=== PATIENT | female | born 1945 | race Caucasian/White ===

== ENCOUNTER → 2017-10-19 | Outpatient (CLI) | payer MEDICARE, OTHER ==
[~2017-10-19] MED LIST: ADVIL100 MG PO; AMLO10 PO; AMLO5 PO; ANTOXYBENA LEFTEAR; ASPI81CH PO; ATOR40TA PO; Amoxicillin500 MG PO; Amoxicillin875 MG PO; Azor 10-40 MG1 EACH PO; Azor 5-40 MG T1 EACH PO; BUPR150ER PO; CLON.2 PO; CLOP75 PO; CYCL10 PO; Calcium Carbon500 M1 PO; Catapres0.2 MG PO; Cipro250 MG PO; Cipro500 MG PO; Col-Rite100 MG PO; Cymbalta60 MG PO; DOCU100; DOCU100 PO; DULO60 PO; ESTR2 PO; FURO20 PO; Flagyl500 MG PO; HUMALOG KW200 UNIT/1 SC; HYDCHL25 PO; HYDHCL25 PO; HYDMOR2 PO; HYDR10 PO; HYDRA25 PO; Humalog Mi100 UNIT/4 SC; IBUP800 PO; INSDET100 SC; INSLIS75I SC; INSUASPI SC; INSULANPEN; INSULANPEN SC; LEVFLO500 PO; LOSA50 PO; MECL12.5 PO; METF500 PO; MIRALAX17 GM PO; Melatonin1 MG; Milk Of Ma800 MG/5 M PO; Norco 5-325 Ta1 EACH PO; OMEP20ER PO; OXYACE5T PO; PANT40 PO; Pepcid20 MG PO; Plavix75 MG PO; Prednisone10 MG PO; SIMV40 PO; TRAM50 PO; TRIA15CR3 TOP; TRIA80TC TOP; Ultram50 MG PO; Vistaril25 MG PO; XARELTO15 MG PO; Zofran Odt4 MG SL
[2017-10-19 12:47] LABS: BASOPHILS ABSOLUTE AUTO 0.06 K/mm3 (0.00-0.23); BASOPHILS PERCENT AUTO 1 % (0-2); EOSINOPHILS PERCENT AUTO 5 % (0-6); Hematocrit 38.1 % (33.0-51.0); Hemoglobin 12.8 g/dL (11.5-16.0); IMMATURE GRAN ABSOLUTE AUTO 0.02 K/mm3 (0.00-0.10); IMMATURE GRAN PERCENT AUTO 0 % (0-1); LYMPHOCYTES ABSOLUTE AUTO 1.59 K/mm3 (0.84-5.20); LYMPHOCYTES PERCENT AUTO 17 % (21-46); MONOCYTES ABSOLUTE AUTO 0.67 K/mm3 (0.16-1.47); MONOCYTES PERCENT AUTO 7 % (4-13); Mean Corpuscular HGB 28.8 pg (26.0-34.0); Mean Corpuscular HGB Conc 33.6 g/dL (31.5-36.5); Mean Corpuscular Volume 86 fL (80-100); Mean Platelet Volume 9.4 fL (9.1-12.4); NEUTROPHILS ABSOLUTE AUTO 6.44 K/mm3 (1.96-9.15); NEUTROPHILS PERCENT AUTO 70 % (41-73); Platelet Count 317 K/mm3 (150-400); RDW Coefficient Variation 13.2 % (11.7-14.2); Red Blood Cell Count 4.45 M/mm3 (3.80-5.20); White Blood Cell Count 9.28 K/mm3 (4.00-11.30)
[2017-10-19 14:23] LABS: Alanine Aminotransfer (ALT/SGP 18 U/L (12-78); Albumin, Blood 2.9 g/dL (3.4-5.0); Albumin/Globulin Ratio 0.8 (0.8-1.8); Alk Phos 75 U/L (50-136); Anion Gap 6 mmol/L (6-16); Aspartate Aminotrans (AST/SGOT 15 U/L (12-37); Bilirubin, Total 0.4 mg/dL (0.1-1.0); Blood Urea Nitrogen 31 mg/dL (8-24); CHOL/HDL RATIO 5.4; CO2, Blood 30 mmol/L (21-32); Calcium, Blood 8.8 mg/dL (8.5-10.1); Chloride, Blood 100 mmol/L (98-108); Cholesterol 253 mg/dL (50-200); Free Thyroxine 1.21 ng/dL (0.70-1.60); Globulin, Blood 3.6 g/dL (2.2-4.0); Glucose, Blood 273 mg/dL (70-99); HDL Cholesterol 47 mg/dL (>39); LDL/HDL RATIO 3.5; Low Density Lipoprotein Chol 166 mg/dL (0-110); Potassium, Blood 4.3 mmol/L (3.5-5.5); Sodium, Blood 136 mmol/L (136-145); Total Protein, Blood 6.5 g/dL (6.4-8.2); Triglycerides 200 mg/dL (30-160); Very Low Density Lipoprot Chol 40 mg/dL (6-32)
[2017-10-19 15:04] LABS: Bun/Creatinine Ratio 22.8 (12.0-20.0); Creatinine, Blood 1.36 mg/dL (0.40-1.00); Glomerular Filtration Rate 41 (60-)
== END | disposition home or self-care (01) ==
LOC: LAB 12:30
PROVIDERS: Family Medicine
DX: E78.5 Hyperlipidemia, unspecified (principal); E03.9 Hypothyroidism, unspecified; I50.9 Heart failure, unspecified
CPT/HCPCS: 80053; 80061; 84439; 84443; 85025

== ENCOUNTER 2017-11-23 18:13 | Emergency (ER) | payer MEDICARE, OTHER ==
[~2017-11-23] VITALS: Ht 162.6 cm; Wt 90.7 kg
[~2017-11-23 18:13] MED LIST changes: -ADVIL100 MG PO; -Calcium Carbon500 M1 PO; -Cipro250 MG PO; -DOCU100 PO; -HUMALOG KW200 UNIT/1 SC; -MECL12.5 PO; -MIRALAX17 GM PO; -PANT40 PO; -Pepcid20 MG PO; -TRIA15CR3 TOP; -XARELTO15 MG PO
[2017-11-23] MEDS ORDERED: Pepcid20 MG PO (19:00)
[2017-11-23] MEDS ORDERED: HYDHCL25 PO (19:00)
[2018-09-12] MEDS ORDERED: Cipro250 MG PO (19:04)
== END 2017-11-23 19:14 | disposition home or self-care (01) ==
LOC: ER 18:13
DX: L50.9 Urticaria, unspecified (principal); Z88.0 Allergy status to penicillin; Z88.2 Allergy status to sulfonamides; Z88.1 Allergy status to other antibiotic agents; Z88.5 Allergy status to narcotic agent; Z79.899 Other long term (current) drug therapy; Z79.4 Long term (current) use of insulin; I10 Essential (primary) hypertension; F32.9 Major depressive disorder, single episode, unspecified; E11.43 Type 2 diabetes mellitus with diabetic autonomic (poly)neuropathy; K31.84 Gastroparesis; Z86.73 Personal history of transient ischemic attack (TIA), and cerebral infarction without residual deficits
CPT/HCPCS: 96372; 99283; J1100

== ENCOUNTER 2018-01-28 12:29 | Emergency (ER) | payer MEDICARE, OTHER ==
[~2018-01-28] VITALS: Ht 160 cm; Wt 93.0 kg
[~2018-01-28 12:29] MED LIST changes: +Pepcid20 MG PO
[2018-01-28] MEDS ORDERED: TRIA15CR3 TOP (13:33)
== END 2018-01-28 13:38 | disposition home or self-care (01) ==
LOC: ER 12:29
DX: L25.9 Unspecified contact dermatitis, unspecified cause (principal); Z88.0 Allergy status to penicillin; Z88.2 Allergy status to sulfonamides; Z88.1 Allergy status to other antibiotic agents; Z88.5 Allergy status to narcotic agent; Z79.899 Other long term (current) drug therapy; Z79.4 Long term (current) use of insulin; I10 Essential (primary) hypertension; F32.9 Major depressive disorder, single episode, unspecified; E11.9 Type 2 diabetes mellitus without complications; Z86.73 Personal history of transient ischemic attack (TIA), and cerebral infarction without residual deficits
CPT/HCPCS: 99282

== ENCOUNTER 2018-05-20 22:11 | Observation (INO) | payer MEDICARE, OTHER ==
[~2018-05-20] VITALS: Ht 160 cm; Wt 89.0 kg
[~2018-05-20 22:11] MED LIST changes: +TRIA15CR3 TOP
[2018-05-20 22:41] LABS: BASOPHILS PERCENT AUTO 1 % (0-2); EOSINOPHILS ABSOLUTE AUTO 0.86 K/mm3 (0.00-0.68); EOSINOPHILS PERCENT AUTO 11 % (0-6); Hematocrit 35.4 % (33.0-51.0); Hemoglobin 12.1 g/dL (11.5-16.0); IMMATURE GRAN ABSOLUTE AUTO 0.02 K/mm3 (0.00-0.10); IMMATURE GRAN PERCENT AUTO 0 % (0-1); LYMPHOCYTES ABSOLUTE AUTO 1.81 K/mm3 (0.84-5.20); LYMPHOCYTES PERCENT AUTO 22 % (21-46); MONOCYTES ABSOLUTE AUTO 0.71 K/mm3 (0.16-1.47); MONOCYTES PERCENT AUTO 9 % (4-13); Mean Corpuscular HGB Conc 34.2 g/dL (31.5-36.5); Mean Corpuscular Volume 85 fL (80-100); Mean Platelet Volume 9.1 fL (9.1-12.4); NEUTROPHILS ABSOLUTE AUTO 4.64 K/mm3 (1.96-9.15); NEUTROPHILS PERCENT AUTO 57 % (41-73); Platelet Count 265 K/mm3 (150-400); RDW Coefficient Variation 13.5 % (11.7-14.2); RDW Standard Deviation 42.2 fL (35.1-46.3); Red Blood Cell Count 4.17 M/mm3 (3.80-5.20); White Blood Cell Count 8.14 K/mm3 (4.00-11.30)
[2018-05-20 22:54] LABS: International Normalized Ratio 0.93; Prothrombin Time Results 9.6 Sec (9.7-11.5)
[2018-05-20 22:57] LABS: Alanine Aminotransfer (ALT/SGP 21 U/L (12-78); Albumin, Blood 2.9 g/dL (3.4-5.0); Albumin/Globulin Ratio 0.8 (0.8-1.8); Alk Phos 70 U/L (50-136); Anion Gap 7 mmol/L (6-16); Aspartate Aminotrans (AST/SGOT 19 U/L (12-37); Bilirubin, Total 0.2 mg/dL (0.1-1.0); Blood Urea Nitrogen 34 mg/dL (8-24); Bun/Creatinine Ratio 18.3 (12.0-20.0); CO2, Blood 28 mmol/L (21-32); Calcium, Blood 8.7 mg/dL (8.5-10.1); Chloride, Blood 104 mmol/L (98-108); Creatinine, Blood 1.86 mg/dL (0.40-1.00); Globulin, Blood 3.5 g/dL (2.2-4.0); Glomerular Filtration Rate 28 (60-); Glucose, Blood 170 mg/dL (70-99); Potassium, Blood 4.2 mmol/L (3.5-5.5); Sodium, Blood 139 mmol/L (136-145); Total Protein, Blood 6.4 g/dL (6.4-8.2)
[2018-05-20 22:58] LABS: Ethanol (Alcohol), Blood, Med <3 mg/dL
[2018-05-21 01:02] LABS: Source, Urine Clean Catch
[2018-05-21 01:04] LABS: Bilirubin, Urine Neg (Neg); Blood, Urine Neg (Neg); Glucose Qualitative, Urine 2+ (Neg); Ketones, Urine Neg (Neg); Leukocyte Esterase, Urine 1+ (Neg); Nitrite, Urine Neg (Neg); Protein, Urine 4+ (Neg); Urobilinogen, Urine NORM (Normal)
[2018-05-21 01:08] LABS: Appearance, Urine Clear (Clear); Color, Urine Yellow (P-Yellow)
[2018-05-21 01:12] LABS: Red Blood Cells, Urine 0-2 /hpf (0-2); Squamous Epithelial Cells Few /hpf (Few)
[2018-05-21 01:13] LABS: Bacteria Few /hpf
[2018-05-22 04:27] LABS: BASOPHILS ABSOLUTE AUTO 0.06 K/mm3 (0.00-0.23); BASOPHILS PERCENT AUTO 1 % (0-2); EOSINOPHILS ABSOLUTE AUTO 0.75 K/mm3 (0.00-0.68); EOSINOPHILS PERCENT AUTO 10 % (0-6); Hemoglobin 12.5 g/dL (11.5-16.0); IMMATURE GRAN ABSOLUTE AUTO 0.03 K/mm3 (0.00-0.10); IMMATURE GRAN PERCENT AUTO 0 % (0-1); LYMPHOCYTES ABSOLUTE AUTO 1.85 K/mm3 (0.84-5.20); LYMPHOCYTES PERCENT AUTO 24 % (21-46); MONOCYTES ABSOLUTE AUTO 0.62 K/mm3 (0.16-1.47); MONOCYTES PERCENT AUTO 8 % (4-13); Mean Corpuscular HGB 28.2 pg (26.0-34.0); Mean Corpuscular HGB Conc 33.8 g/dL (31.5-36.5); Mean Corpuscular Volume 84 fL (80-100); Mean Platelet Volume 9.1 fL (9.1-12.4); NEUTROPHILS ABSOLUTE AUTO 4.46 K/mm3 (1.96-9.15); NEUTROPHILS PERCENT AUTO 57 % (41-73); Platelet Count 270 K/mm3 (150-400); RDW Coefficient Variation 13.3 % (11.7-14.2); RDW Standard Deviation 40.6 fL (35.1-46.3); Red Blood Cell Count 4.43 M/mm3 (3.80-5.20); White Blood Cell Count 7.77 K/mm3 (4.00-11.30)
[2018-05-22 04:55] LABS: Bun/Creatinine Ratio 13.1 (12.0-20.0); Calcium, Blood 8.9 mg/dL (8.5-10.1); Creatinine, Blood 1.53 mg/dL (0.40-1.00); Potassium, Blood 3.8 mmol/L (3.5-5.5)
[2018-05-23] MEDS ORDERED: ASPI81CH PO (22:48)
[2018-05-23] MEDS ORDERED: ADVIL100 MG PO (22:48)
== END 2018-05-22 14:05 | disposition home health service (06) ==
LOC: ER 22:11 → MEDS 22:12 → ENPENDDIS 05-22 10:30 → MEDS 05-22 14:05
PROVIDERS: Emergency Medicine; Family Medicine
DX: I63.9 Cerebral infarction, unspecified (principal); R29.6 Repeated falls; E11.22 Type 2 diabetes mellitus with diabetic chronic kidney disease; I12.9 Hypertensive chronic kidney disease with stage 1 through stage 4 chronic kidney disease, or unspecified chronic kidney disease; N18.9 Chronic kidney disease, unspecified; N17.9 Acute kidney failure, unspecified; Z79.01 Long term (current) use of anticoagulants; Z79.899 Other long term (current) drug therapy; Z79.02 Long term (current) use of antithrombotics/antiplatelets; Z79.4 Long term (current) use of insulin
CPT/HCPCS: 36415; 70450; 70551; 71046; 80048; 80053; 81001; 82947; 85025; 85610; 85730; 87086; 93005; 93010; 96372; 96374; 97110; 97161; 97166; 97530; 99285-25; G0378; G0480; G8978; G8979; G8987; G8988; J0360; J1650; J1815

== ENCOUNTER 2018-05-23 15:06 | Inpatient (IN) | payer MEDICARE, OTHER ==
[~2018-05-23] VITALS: Ht 160 cm; Wt 83.6 kg
[2018-05-23 19:07] LABS: BASOPHILS ABSOLUTE AUTO 0.05 K/mm3 (0.00-0.23); BASOPHILS PERCENT AUTO 1 % (0-2); EOSINOPHILS PERCENT AUTO 6 % (0-6); Hematocrit 37.4 % (33.0-51.0); Hemoglobin 12.7 g/dL (11.5-16.0); IMMATURE GRAN ABSOLUTE AUTO 0.02 K/mm3 (0.00-0.10); IMMATURE GRAN PERCENT AUTO 0 % (0-1); LYMPHOCYTES ABSOLUTE AUTO 1.96 K/mm3 (0.84-5.20); LYMPHOCYTES PERCENT AUTO 29 % (21-46); MONOCYTES ABSOLUTE AUTO 0.52 K/mm3 (0.16-1.47); MONOCYTES PERCENT AUTO 8 % (4-13); Mean Corpuscular HGB 28.9 pg (26.0-34.0); Mean Corpuscular Volume 85 fL (80-100); NEUTROPHILS ABSOLUTE AUTO 3.93 K/mm3 (1.96-9.15); NEUTROPHILS PERCENT AUTO 57 % (41-73); RDW Coefficient Variation 13.3 % (11.7-14.2); RDW Standard Deviation 41.4 fL (35.1-46.3); Red Blood Cell Count 4.39 M/mm3 (3.80-5.20); White Blood Cell Count 6.88 K/mm3 (4.00-11.30)
[2018-05-23 19:08] LABS: Mean Platelet Volume 9.7 fL (9.1-12.4); Platelet Count 97 K/mm3 (150-400)
[2018-05-23 19:19] LABS: International Normalized Ratio 1.01; Prothrombin Time Results 10.4 Sec (9.7-11.5)
[2018-05-23 19:27] LABS: Albumin, Blood 3.1 g/dL (3.4-5.0); Albumin/Globulin Ratio 0.9 (0.8-1.8); Bilirubin, Total 0.7 mg/dL (0.1-1.0); Bun/Creatinine Ratio 10.9 (12.0-20.0); Calcium, Blood 8.9 mg/dL (8.5-10.1); Creatinine, Blood 1.56 mg/dL (0.40-1.00); Globulin, Blood 3.3 g/dL (2.2-4.0); Potassium, Blood 4.1 mmol/L (3.5-5.5); Total Protein, Blood 6.4 g/dL (6.4-8.2)
[2018-05-23 22:00] LABS: Hematocrit 37.3 % (33.0-51.0); Hemoglobin 12.6 g/dL (11.5-16.0); Mean Corpuscular HGB 28.6 pg (26.0-34.0); Mean Corpuscular HGB Conc 33.8 g/dL (31.5-36.5); Mean Corpuscular Volume 85 fL (80-100); Platelet Count 236 K/mm3 (150-400); RDW Coefficient Variation 13.2 % (11.7-14.2); RDW Standard Deviation 41.1 fL (35.1-46.3); White Blood Cell Count 8.23 K/mm3 (4.00-11.30)
[2018-05-23] MEDS ORDERED: ASPI81CH PO (22:48)
[2018-05-23] MEDS ORDERED: ADVIL100 MG PO (22:48)
[2018-05-24 05:17] LABS: Calcium, Blood 8.7 mg/dL (8.5-10.1); Creatinine, Blood 1.38 mg/dL (0.40-1.00); Potassium, Blood 3.9 mmol/L (3.5-5.5)
[2018-05-25 06:12] LABS: Hematocrit 36.7 % (33.0-51.0); Hemoglobin 12.8 g/dL (11.5-16.0); Mean Corpuscular HGB Conc 34.9 g/dL (31.5-36.5); Mean Corpuscular Volume 83 fL (80-100); Mean Platelet Volume 8.9 fL (9.1-12.4); Platelet Count 211 K/mm3 (150-400); RDW Coefficient Variation 13.1 % (11.7-14.2); RDW Standard Deviation 39.6 fL (35.1-46.3); Red Blood Cell Count 4.41 M/mm3 (3.80-5.20); White Blood Cell Count 7.32 K/mm3 (4.00-11.30)
[2018-05-25 06:34] LABS: Albumin, Blood 2.8 g/dL (3.4-5.0); Albumin/Globulin Ratio 0.8 (0.8-1.8); Bilirubin, Total 0.4 mg/dL (0.1-1.0); Bun/Creatinine Ratio 15.3 (12.0-20.0); Calcium, Blood 8.8 mg/dL (8.5-10.1); Creatinine, Blood 1.37 mg/dL (0.40-1.00); Globulin, Blood 3.3 g/dL (2.2-4.0); Potassium, Blood 4.3 mmol/L (3.5-5.5); Total Protein, Blood 6.1 g/dL (6.4-8.2)
[2018-05-26 05:36] LABS: BASOPHILS ABSOLUTE AUTO 0.07 K/mm3 (0.00-0.23); BASOPHILS PERCENT AUTO 1 % (0-2); EOSINOPHILS ABSOLUTE AUTO 0.68 K/mm3 (0.00-0.68); EOSINOPHILS PERCENT AUTO 8 % (0-6); Hematocrit 39.1 % (33.0-51.0); Hemoglobin 13.3 g/dL (11.5-16.0); IMMATURE GRAN ABSOLUTE AUTO 0.02 K/mm3 (0.00-0.10); IMMATURE GRAN PERCENT AUTO 0 % (0-1); LYMPHOCYTES ABSOLUTE AUTO 2.08 K/mm3 (0.84-5.20); LYMPHOCYTES PERCENT AUTO 25 % (21-46); MONOCYTES ABSOLUTE AUTO 0.64 K/mm3 (0.16-1.47); MONOCYTES PERCENT AUTO 8 % (4-13); Mean Corpuscular HGB 28.7 pg (26.0-34.0); Mean Corpuscular Volume 84 fL (80-100); Mean Platelet Volume 9.1 fL (9.1-12.4); NEUTROPHILS ABSOLUTE AUTO 4.79 K/mm3 (1.96-9.15); NEUTROPHILS PERCENT AUTO 58 % (41-73); Platelet Count 267 K/mm3 (150-400); RDW Coefficient Variation 13.2 % (11.7-14.2); RDW Standard Deviation 41.2 fL (35.1-46.3); Red Blood Cell Count 4.63 M/mm3 (3.80-5.20); White Blood Cell Count 8.28 K/mm3 (4.00-11.30)
[2018-05-26 06:08] LABS: Bun/Creatinine Ratio 17.9 (12.0-20.0); Calcium, Blood 9.2 mg/dL (8.5-10.1); Creatinine, Blood 1.4 mg/dL (0.40-1.00); Potassium, Blood 4.1 mmol/L (3.5-5.5)
[2018-05-27 05:20] LABS: Hematocrit 38.2 % (33.0-51.0); Mean Corpuscular HGB 28.3 pg (26.0-34.0); Mean Corpuscular Volume 83 fL (80-100); Mean Platelet Volume 9.5 fL (9.1-12.4); Platelet Count 284 K/mm3 (150-400); RDW Coefficient Variation 13.3 % (11.7-14.2); RDW Standard Deviation 40.2 fL (35.1-46.3); Red Blood Cell Count 4.59 M/mm3 (3.80-5.20); White Blood Cell Count 11.31 K/mm3 (4.00-11.30)
[2018-05-27 05:53] LABS: Bun/Creatinine Ratio 16.9 (12.0-20.0); Creatinine, Blood 1.48 mg/dL (0.40-1.00); Potassium, Blood 4.1 mmol/L (3.5-5.5)
[2018-05-29 04:58] LABS: BASOPHILS ABSOLUTE AUTO 0.07 K/mm3 (0.00-0.23); BASOPHILS PERCENT AUTO 1 % (0-2); EOSINOPHILS ABSOLUTE AUTO 0.61 K/mm3 (0.00-0.68); EOSINOPHILS PERCENT AUTO 7 % (0-6); Hematocrit 35.7 % (33.0-51.0); IMMATURE GRAN ABSOLUTE AUTO 0.02 K/mm3 (0.00-0.10); IMMATURE GRAN PERCENT AUTO 0 % (0-1); LYMPHOCYTES ABSOLUTE AUTO 2.22 K/mm3 (0.84-5.20); LYMPHOCYTES PERCENT AUTO 25 % (21-46); MONOCYTES ABSOLUTE AUTO 0.76 K/mm3 (0.16-1.47); MONOCYTES PERCENT AUTO 9 % (4-13); Mean Corpuscular HGB 28.8 pg (26.0-34.0); Mean Corpuscular HGB Conc 33.6 g/dL (31.5-36.5); Mean Platelet Volume 9.2 fL (9.1-12.4); NEUTROPHILS ABSOLUTE AUTO 5.05 K/mm3 (1.96-9.15); NEUTROPHILS PERCENT AUTO 58 % (41-73); Platelet Count 274 K/mm3 (150-400); RDW Coefficient Variation 13.6 % (11.7-14.2); RDW Standard Deviation 42.5 fL (35.1-46.3); Red Blood Cell Count 4.16 M/mm3 (3.80-5.20); White Blood Cell Count 8.73 K/mm3 (4.00-11.30)
[2018-05-29 05:05] LABS: Mean Corpuscular Volume 86 fL (80-100)
[2018-05-29 05:18] LABS: Anion Gap 8 mmol/L (6-16); Blood Urea Nitrogen 30 mg/dL (8-24); Bun/Creatinine Ratio 18.4 (12.0-20.0); CO2, Blood 26 mmol/L (21-32); Calcium, Blood 8.8 mg/dL (8.5-10.1); Chloride, Blood 106 mmol/L (98-108); Cholesterol 141 mg/dL (50-200); Creatinine, Blood 1.63 mg/dL (0.40-1.00); Glomerular Filtration Rate 33 (60-); Glucose, Blood 126 mg/dL (70-99); Potassium, Blood 4.2 mmol/L (3.5-5.5); Sodium, Blood 140 mmol/L (136-145); Triglycerides 113 mg/dL (30-160); Very Low Density Lipoprot Chol 22 mg/dL (6-32)
[2018-05-29 05:21] LABS: CHOL/HDL RATIO 3.2; HDL Cholesterol 44 mg/dL (>39); LDL/HDL RATIO 1.7; Low Density Lipoprotein Chol 74 mg/dL (0-110)
[2018-05-31 05:28] LABS: Bun/Creatinine Ratio 20.1 (12.0-20.0); Calcium, Blood 9.1 mg/dL (8.5-10.1); Creatinine, Blood 1.69 mg/dL (0.40-1.00); Potassium, Blood 4.2 mmol/L (3.5-5.5)
[2018-06-01] MEDS ORDERED: HUMALOG KW200 UNIT/1 SC (12:14)
[2018-06-01] MEDS ORDERED: INSULANPEN SC (12:15)
[2018-06-01] MEDS ORDERED: Calcium Carbon500 M1 PO (12:17)
[2018-06-01] MEDS ORDERED: DOCU100 PO (12:17)
[2018-06-01] MEDS ORDERED: LOSA50 PO (12:17)
[2018-06-01] MEDS ORDERED: MECL12.5 PO (12:18)
[2018-06-01] MEDS ORDERED: PANT40 PO (12:18)
[2018-06-01] MEDS ORDERED: XARELTO15 MG PO (12:19)
[2018-06-01] MEDS ORDERED: TRAM50 PO (12:20)
[2018-06-01] MEDS ORDERED: MIRALAX17 GM PO (12:20)
== END 2018-06-01 12:52 | DRG 69 ==
LOC: ER 15:06 → MEDS 15:07 → ENPENDDIS 06-01 10:00 → MEDS 06-01 12:52
PROVIDERS: Emergency Medicine; Family Medicine; Internal Medicine; Nurse Practitioner Acute Care
DX: G45.9 Transient cerebral ischemic attack, unspecified (principal); F32.9 Major depressive disorder, single episode, unspecified; Z90.5 Acquired absence of kidney; N18.3 Chronic kidney disease, stage 3 (moderate); I12.9 Hypertensive chronic kidney disease with stage 1 through stage 4 chronic kidney disease, or unspecified chronic kidney disease; Z79.82 Long term (current) use of aspirin; Z79.4 Long term (current) use of insulin; Z86.73 Personal history of transient ischemic attack (TIA), and cerebral infarction without residual deficits; Z91.81 History of falling; R26.9 Unspecified abnormalities of gait and mobility; W19.XXXA Unspecified fall, initial encounter; R26.81 Unsteadiness on feet; E11.22 Type 2 diabetes mellitus with diabetic chronic kidney disease; E11.65 Type 2 diabetes mellitus with hyperglycemia; I48.0 Paroxysmal atrial fibrillation; Z79.02 Long term (current) use of antithrombotics/antiplatelets; R42 Dizziness and giddiness
CPT/HCPCS: 36415; 36416; 70450; 73502; 80048; 80053; 80061; 82947; 85025; 85027; 85610; 85651; 93306; 93880; 97110; 97116; 97162; 97166; 97530; 97535; 99285-25; G0515; G8978; G8979; G8987; G8988; J0360

== ENCOUNTER 2018-12-29 17:18 | Emergency (ER) | payer MEDICARE, OTHER ==
[~2018-12-29] VITALS: Ht 160 cm; Wt 81.7 kg
[~2018-12-29 17:18] MED LIST changes: +ADVIL100 MG PO; +Calcium Carbon500 M1 PO; +Cipro250 MG PO; +DOCU100 PO; +HUMALOG KW200 UNIT/1 SC; +MECL12.5 PO; +MIRALAX17 GM PO; +PANT40 PO; +XARELTO15 MG PO
[2018-12-29 18:50] LABS: BASOPHILS ABSOLUTE AUTO 0.08 K/mm3 (0.00-0.23); BASOPHILS PERCENT AUTO 1 % (0-2); EOSINOPHILS ABSOLUTE AUTO 0.69 K/mm3 (0.00-0.68); EOSINOPHILS PERCENT AUTO 7 % (0-6); Hematocrit 39.3 % (33.0-51.0); Hemoglobin 13.2 g/dL (11.5-16.0); IMMATURE GRAN ABSOLUTE AUTO 0.02 K/mm3 (0.00-0.10); IMMATURE GRAN PERCENT AUTO 0 % (0-1); LYMPHOCYTES PERCENT AUTO 24 % (21-46); MONOCYTES ABSOLUTE AUTO 0.81 K/mm3 (0.16-1.47); MONOCYTES PERCENT AUTO 8 % (4-13); Mean Corpuscular HGB 28.5 pg (26.0-34.0); Mean Corpuscular HGB Conc 33.6 g/dL (31.5-36.5); Mean Corpuscular Volume 85 fL (80-100); Mean Platelet Volume 9.3 fL (9.1-12.4); NEUTROPHILS PERCENT AUTO 60 % (41-73); Platelet Count 330 K/mm3 (150-400); RDW Coefficient Variation 13.2 % (11.7-14.2); RDW Standard Deviation 40.9 fL (35.1-46.3); Red Blood Cell Count 4.63 M/mm3 (3.80-5.20)
[2018-12-29 19:13] LABS: Alanine Aminotransfer (ALT/SGP 22 U/L (12-78); Albumin, Blood 2.9 g/dL (3.4-5.0); Albumin/Globulin Ratio 0.7 (0.8-1.8); Alk Phos 84 U/L (50-136); Anion Gap 7 mmol/L (6-16); Aspartate Aminotrans (AST/SGOT 29 U/L (12-37); Bilirubin, Total 0.3 mg/dL (0.1-1.0); Blood Urea Nitrogen 24 mg/dL (8-24); Bun/Creatinine Ratio 19.8 (12.0-20.0); CO2, Blood 25 mmol/L (21-32); Calcium, Blood 9.3 mg/dL (8.5-10.1); Chloride, Blood 103 mmol/L (98-108); Creatinine, Blood 1.21 mg/dL (0.40-1.00); Glomerular Filtration Rate 46 (60-); Glucose, Blood 75 mg/dL (70-99); Potassium, Blood 4.2 mmol/L (3.5-5.5); Sodium, Blood 135 mmol/L (136-145); Total Protein, Blood 6.9 g/dL (6.4-8.2); Troponin I <0.015 ng/mL (0.000-0.040)
== END 2018-12-29 21:49 | disposition home or self-care (01) ==
LOC: ER 17:18
PROVIDERS: Physician Assistant
DX: E87.8 Other disorders of electrolyte and fluid balance, not elsewhere classified (principal); Z88.0 Allergy status to penicillin; Z88.2 Allergy status to sulfonamides; Z88.1 Allergy status to other antibiotic agents; Z88.5 Allergy status to narcotic agent; Z79.899 Other long term (current) drug therapy; Z79.82 Long term (current) use of aspirin; Z79.4 Long term (current) use of insulin; I10 Essential (primary) hypertension; F32.9 Major depressive disorder, single episode, unspecified; E11.9 Type 2 diabetes mellitus without complications
CPT/HCPCS: 36415; 70450; 80053; 84484; 85025; 93005; 93010; 96361; 96374; 96375; 99284-25; J1200; J2765; J7030

== ENCOUNTER 2019-01-29 07:08 | Emergency (ER) | payer MEDICARE, OTHER ==
[~2019-01-29] VITALS: Ht 160 cm; Wt 82.5 kg
== END 2019-01-29 08:01 | disposition home or self-care (01) ==
LOC: ER 07:08
DX: S30.0XXA Contusion of lower back and pelvis, initial encounter (principal); F32.9 Major depressive disorder, single episode, unspecified; E11.9 Type 2 diabetes mellitus without complications; I10 Essential (primary) hypertension; W19.XXXA Unspecified fall, initial encounter
CPT/HCPCS: 72170; 82272; 99283-25

== ENCOUNTER 2019-03-17 15:01 | Emergency (ER) | payer MEDICARE ==
[~2019-03-17] VITALS: Ht 160 cm; Wt 90.7 kg
[2019-03-17 15:50] LABS: BASOPHILS ABSOLUTE AUTO 0.05 K/mm3 (0.00-0.23); BASOPHILS PERCENT AUTO 1 % (0-2); EOSINOPHILS ABSOLUTE AUTO 0.18 K/mm3 (0.00-0.68); EOSINOPHILS PERCENT AUTO 2 % (0-6); Hematocrit 39.8 % (33.0-51.0); Hemoglobin 13.4 g/dL (11.5-16.0); IMMATURE GRAN ABSOLUTE AUTO 0.03 K/mm3 (0.00-0.10); IMMATURE GRAN PERCENT AUTO 0 % (0-1); LYMPHOCYTES ABSOLUTE AUTO 1.32 K/mm3 (0.84-5.20); LYMPHOCYTES PERCENT AUTO 13 % (21-46); MONOCYTES ABSOLUTE AUTO 0.47 K/mm3 (0.16-1.47); MONOCYTES PERCENT AUTO 5 % (4-13); Mean Corpuscular HGB 28.1 pg (26.0-34.0); Mean Corpuscular HGB Conc 33.7 g/dL (31.5-36.5); Mean Corpuscular Volume 83 fL (80-100); Mean Platelet Volume 9.7 fL (9.1-12.4); NEUTROPHILS ABSOLUTE AUTO 8.19 K/mm3 (1.96-9.15); NEUTROPHILS PERCENT AUTO 80 % (41-73); Platelet Count 306 K/mm3 (150-400); RDW Coefficient Variation 13.2 % (11.7-14.2); RDW Standard Deviation 40.1 fL (35.1-46.3); Red Blood Cell Count 4.77 M/mm3 (3.80-5.20); White Blood Cell Count 10.24 K/mm3 (4.00-11.30)
[2019-03-17 16:12] LABS: Albumin, Blood 2.9 g/dL (3.4-5.0); Albumin/Globulin Ratio 0.7 (0.8-1.8); Bilirubin, Total 0.3 mg/dL (0.1-1.0); Bun/Creatinine Ratio 22.2 (12.0-20.0); Calcium, Blood 10.1 mg/dL (8.5-10.1); Creatinine, Blood 1.35 mg/dL (0.40-1.00); Globulin, Blood 3.9 g/dL (2.2-4.0); Potassium, Blood 4.7 mmol/L (3.5-5.5); Total Protein, Blood 6.8 g/dL (6.4-8.2)
== END 2019-03-17 17:55 | disposition left against medical advice (07) ==
LOC: ER 15:01
PROVIDERS: Physician Assistant
DX: Z53.21 Procedure and treatment not carried out due to patient leaving prior to being seen by health care provider (principal)
CPT/HCPCS: 36415; 80053; 85025; 93005; 93010

== ENCOUNTER 2019-03-28 09:15 | Emergency (ER) | payer MEDICARE, OTHER ==
[~2019-03-28] VITALS: Ht 160 cm; Wt 90.7 kg
[2019-03-28 09:51] LABS: BASOPHILS ABSOLUTE AUTO 0.11 K/mm3 (0.00-0.23); BASOPHILS PERCENT AUTO 1 % (0-2); EOSINOPHILS PERCENT AUTO 4 % (0-6); Hematocrit 42.3 % (33.0-51.0); IMMATURE GRAN ABSOLUTE AUTO 0.03 K/mm3 (0.00-0.10); IMMATURE GRAN PERCENT AUTO 0 % (0-1); LYMPHOCYTES ABSOLUTE AUTO 1.72 K/mm3 (0.84-5.20); LYMPHOCYTES PERCENT AUTO 17 % (21-46); MONOCYTES ABSOLUTE AUTO 0.77 K/mm3 (0.16-1.47); MONOCYTES PERCENT AUTO 7 % (4-13); Mean Corpuscular HGB 28.3 pg (26.0-34.0); Mean Corpuscular HGB Conc 33.1 g/dL (31.5-36.5); Mean Platelet Volume 9.5 fL (9.1-12.4); NEUTROPHILS PERCENT AUTO 71 % (41-73); Platelet Count 355 K/mm3 (150-400); RDW Coefficient Variation 13.5 % (11.7-14.2); RDW Standard Deviation 41.4 fL (35.1-46.3); Red Blood Cell Count 4.95 M/mm3 (3.80-5.20); White Blood Cell Count 10.43 K/mm3 (4.00-11.30)
[2019-03-28 09:53] LABS: Mean Corpuscular Volume 86 fL (80-100)
[2019-03-28 11:05] LABS: Albumin, Blood 2.9 g/dL (3.4-5.0); Albumin/Globulin Ratio 0.7 (0.8-1.8); Bilirubin, Total 0.3 mg/dL (0.1-1.0); Bun/Creatinine Ratio 19.2 (12.0-20.0); Calcium, Blood 9.6 mg/dL (8.5-10.1); Creatinine, Blood 1.51 mg/dL (0.40-1.00); Globulin, Blood 3.9 g/dL (2.2-4.0); Potassium, Blood 3.9 mmol/L (3.5-5.5); Total Protein, Blood 6.8 g/dL (6.4-8.2)
[2019-03-28] MEDS ORDERED: Ultram50 MG PO (12:18)
== END 2019-03-28 12:58 | disposition home or self-care (01) ==
LOC: ER 09:15
PROVIDERS: Emergency Medicine
DX: S30.0XXA Contusion of lower back and pelvis, initial encounter (principal); G45.9 Transient cerebral ischemic attack, unspecified; W18.30XA Fall on same level, unspecified, initial encounter; I10 Essential (primary) hypertension; F32.9 Major depressive disorder, single episode, unspecified; E11.9 Type 2 diabetes mellitus without complications; Z86.73 Personal history of transient ischemic attack (TIA), and cerebral infarction without residual deficits; Z88.0 Allergy status to penicillin; Z88.8 Allergy status to other drugs, medicaments and biological substances; Z88.2 Allergy status to sulfonamides; Z88.5 Allergy status to narcotic agent; Z79.899 Other long term (current) drug therapy; Z79.82 Long term (current) use of aspirin; Z79.4 Long term (current) use of insulin; Z79.891 Long term (current) use of opiate analgesic
CPT/HCPCS: 36415; 70450; 72100; 80053; 85025; 93005; 93010; 96361; 96374; 99285-25; C9113; J7120

== ENCOUNTER 2019-03-31 12:48 | Emergency (ER) | payer MEDICARE, OTHER ==
[~2019-03-31] VITALS: Ht 160 cm; Wt 90.7 kg
[2019-03-31 13:09] LABS: BASOPHILS ABSOLUTE AUTO 0.07 K/mm3 (0.00-0.23); BASOPHILS PERCENT AUTO 1 % (0-2); EOSINOPHILS ABSOLUTE AUTO 0.15 K/mm3 (0.00-0.68); EOSINOPHILS PERCENT AUTO 2 % (0-6); Hemoglobin 13.4 g/dL (11.5-16.0); IMMATURE GRAN ABSOLUTE AUTO 0.04 K/mm3 (0.00-0.10); IMMATURE GRAN PERCENT AUTO 0 % (0-1); LYMPHOCYTES ABSOLUTE AUTO 1.25 K/mm3 (0.84-5.20); LYMPHOCYTES PERCENT AUTO 13 % (21-46); MONOCYTES ABSOLUTE AUTO 0.65 K/mm3 (0.16-1.47); MONOCYTES PERCENT AUTO 7 % (4-13); Mean Corpuscular HGB 28.3 pg (26.0-34.0); Mean Corpuscular HGB Conc 33.5 g/dL (31.5-36.5); Mean Corpuscular Volume 85 fL (80-100); Mean Platelet Volume 9.6 fL (9.1-12.4); NEUTROPHILS ABSOLUTE AUTO 7.88 K/mm3 (1.96-9.15); NEUTROPHILS PERCENT AUTO 78 % (41-73); Platelet Count 309 K/mm3 (150-400); RDW Coefficient Variation 13.6 % (11.7-14.2); RDW Standard Deviation 41.5 fL (35.1-46.3); Red Blood Cell Count 4.73 M/mm3 (3.80-5.20); White Blood Cell Count 10.04 K/mm3 (4.00-11.30)
[2019-03-31 13:30] LABS: Albumin/Globulin Ratio 0.8 (0.8-1.8); Bilirubin, Total 0.5 mg/dL (0.1-1.0); Bun/Creatinine Ratio 18.9 (12.0-20.0); Calcium, Blood 9.2 mg/dL (8.5-10.1); Creatinine, Blood 1.27 mg/dL (0.40-1.00); Globulin, Blood 3.8 g/dL (2.2-4.0); Potassium, Blood 3.9 mmol/L (3.5-5.5); Total Protein, Blood 6.8 g/dL (6.4-8.2); Troponin I 0.039 ng/mL (0.000-0.040)
[2019-03-31] MEDS ORDERED: COMPAZINE10 MG PO (15:37)
[2019-03-31] MEDS ORDERED: OMEPRAZOLE MAGN20 MG PO (15:37)
== END 2019-03-31 15:56 | disposition home or self-care (01) ==
LOC: ER 12:48
PROVIDERS: Emergency Medicine
DX: E11.43 Type 2 diabetes mellitus with diabetic autonomic (poly)neuropathy (principal); K31.84 Gastroparesis; R09.1 Pleurisy; I13.0 Hypertensive heart and chronic kidney disease with heart failure and stage 1 through stage 4 chronic kidney disease, or unspecified chronic kidney disease; E11.22 Type 2 diabetes mellitus with diabetic chronic kidney disease; I50.9 Heart failure, unspecified; N18.9 Chronic kidney disease, unspecified
CPT/HCPCS: 71045; 71260; 80053; 84484; 85025; 85379; 93005; 93010; 96374-59; 96375-59; 99285-25; J1170; J2405; Q9967

== ENCOUNTER 2019-07-19 10:47 | Emergency (ER) | payer MEDICARE, OTHER ==
[~2019-07-19] VITALS: Ht 160 cm; Wt 78.5 kg
[~2019-07-19 10:47] MED LIST changes: +COMPAZINE10 MG PO; +OMEPRAZOLE MAGN20 MG PO
[2019-07-19] MEDS ORDERED: Robaxin-750750 MG PO (12:55)
== END 2019-07-19 13:02 | disposition home or self-care (01) ==
LOC: ER 10:47
DX: S20.212A Contusion of left front wall of thorax, initial encounter (principal); M54.5 Low back pain; I13.0 Hypertensive heart and chronic kidney disease with heart failure and stage 1 through stage 4 chronic kidney disease, or unspecified chronic kidney disease; E11.22 Type 2 diabetes mellitus with diabetic chronic kidney disease; N18.9 Chronic kidney disease, unspecified; I50.9 Heart failure, unspecified; E11.43 Type 2 diabetes mellitus with diabetic autonomic (poly)neuropathy; K31.84 Gastroparesis; Z86.73 Personal history of transient ischemic attack (TIA), and cerebral infarction without residual deficits; Z88.0 Allergy status to penicillin; Z88.2 Allergy status to sulfonamides; Z88.8 Allergy status to other drugs, medicaments and biological substances; Z88.5 Allergy status to narcotic agent; Z79.899 Other long term (current) drug therapy; Z79.82 Long term (current) use of aspirin; Z79.4 Long term (current) use of insulin; Z79.01 Long term (current) use of anticoagulants; W18.39XA Other fall on same level, initial encounter
CPT/HCPCS: 71101; 72100; 73610; 99283-25; A9270-GY

== ENCOUNTER 2019-07-31 09:30 | Emergency (ER) | payer MEDICARE, OTHER ==
[~2019-07-31] VITALS: Ht 160 cm; Wt 78.5 kg
[~2019-07-31 09:30] MED LIST changes: +Robaxin-750750 MG PO
[2019-07-31 10:30] LABS: BASOPHILS ABSOLUTE AUTO 0.04 K/mm3 (0.00-0.23); BASOPHILS PERCENT AUTO 0 % (0-2); EOSINOPHILS ABSOLUTE AUTO 0.04 K/mm3 (0.00-0.68); EOSINOPHILS PERCENT AUTO 0 % (0-6); Hematocrit 39.1 % (33.0-51.0); Hemoglobin 12.8 g/dL (11.5-16.0); IMMATURE GRAN ABSOLUTE AUTO 0.07 K/mm3 (0.00-0.10); IMMATURE GRAN PERCENT AUTO 1 % (0-1); LYMPHOCYTES ABSOLUTE AUTO 0.83 K/mm3 (0.84-5.20); LYMPHOCYTES PERCENT AUTO 6 % (21-46); MONOCYTES PERCENT AUTO 4 % (4-13); Mean Corpuscular HGB 28.3 pg (26.0-34.0); Mean Corpuscular HGB Conc 32.7 g/dL (31.5-36.5); Mean Corpuscular Volume 87 fL (80-100); Mean Platelet Volume 9.5 fL (9.1-12.4); NEUTROPHILS ABSOLUTE AUTO 11.61 K/mm3 (1.96-9.15); NEUTROPHILS PERCENT AUTO 89 % (41-73); Platelet Count 321 K/mm3 (150-400); RDW Coefficient Variation 13.4 % (11.7-14.2); RDW Standard Deviation 41.7 fL (35.1-46.3); Red Blood Cell Count 4.52 M/mm3 (3.80-5.20); White Blood Cell Count 13.09 K/mm3 (4.00-11.30)
[2019-07-31 10:46] LABS: Albumin/Globulin Ratio 0.8 (0.8-1.8); Bilirubin, Total 0.4 mg/dL (0.1-1.0); Bun/Creatinine Ratio 19.6 (12.0-20.0); Calcium, Blood 9.4 mg/dL (8.5-10.1); Creatinine, Blood 1.48 mg/dL (0.40-1.00); Globulin, Blood 3.9 g/dL (2.2-4.0); Total Protein, Blood 6.9 g/dL (6.4-8.2)
[2019-07-31] MEDS ORDERED: AZIT250 PO (13:49)
== END 2019-07-31 15:48 | disposition home or self-care (01) ==
LOC: ER 09:30
PROVIDERS: Emergency Medicine
DX: J18.9 Pneumonia, unspecified organism (principal); R06.00 Dyspnea, unspecified; Z88.0 Allergy status to penicillin; Z88.2 Allergy status to sulfonamides; Z88.1 Allergy status to other antibiotic agents; Z88.5 Allergy status to narcotic agent; Z79.899 Other long term (current) drug therapy; Z79.84 Long term (current) use of oral hypoglycemic drugs; Z79.82 Long term (current) use of aspirin; I13.0 Hypertensive heart and chronic kidney disease with heart failure and stage 1 through stage 4 chronic kidney disease, or unspecified chronic kidney disease; E11.22 Type 2 diabetes mellitus with diabetic chronic kidney disease; N18.9 Chronic kidney disease, unspecified; I50.9 Heart failure, unspecified; Z86.73 Personal history of transient ischemic attack (TIA), and cerebral infarction without residual deficits; F32.9 Major depressive disorder, single episode, unspecified; E11.43 Type 2 diabetes mellitus with diabetic autonomic (poly)neuropathy; K31.84 Gastroparesis
CPT/HCPCS: 36415; 70450; 71045; 71250; 80053; 85025; 93005; 93010; 99284-25

== ENCOUNTER 2019-08-27 06:49 | Inpatient (IN) | payer MEDICARE, OTHER ==
[~2019-08-27] VITALS: Ht 160 cm; Wt 82.1 kg
[~2019-08-27 06:49] MED LIST changes: -AMLO10 PO; +AZIT250 PO; +Amlodipine Besy10 MG PO; +CLON.1 PO
[2019-08-27 07:17] LABS: BASOPHILS ABSOLUTE AUTO 0.11 K/mm3 (0.00-0.23); BASOPHILS PERCENT AUTO 1 % (0-2); EOSINOPHILS ABSOLUTE AUTO 0.53 K/mm3 (0.00-0.68); EOSINOPHILS PERCENT AUTO 4 % (0-6); Hematocrit 35.5 % (33.0-51.0); Hemoglobin 11.5 g/dL (11.5-16.0); IMMATURE GRAN ABSOLUTE AUTO 0.04 K/mm3 (0.00-0.10); IMMATURE GRAN PERCENT AUTO 0 % (0-1); LYMPHOCYTES ABSOLUTE AUTO 1.67 K/mm3 (0.84-5.20); LYMPHOCYTES PERCENT AUTO 13 % (21-46); MONOCYTES PERCENT AUTO 7 % (4-13); Mean Corpuscular HGB 27.8 pg (26.0-34.0); Mean Corpuscular HGB Conc 32.4 g/dL (31.5-36.5); Mean Corpuscular Volume 86 fL (80-100); Mean Platelet Volume 9.3 fL (9.1-12.4); NEUTROPHILS PERCENT AUTO 76 % (41-73); Platelet Count 321 K/mm3 (150-400); RDW Coefficient Variation 13.7 % (11.7-14.2); RDW Standard Deviation 42.6 fL (35.1-46.3); Red Blood Cell Count 4.14 M/mm3 (3.80-5.20); White Blood Cell Count 13.25 K/mm3 (4.00-11.30)
[2019-08-27 07:41] LABS: Albumin, Blood 2.9 g/dL (3.4-5.0); Albumin/Globulin Ratio 0.8 (0.8-1.8); Bilirubin, Total 0.5 mg/dL (0.1-1.0); Bun/Creatinine Ratio 9.9 (12.0-20.0); Calcium, Blood 8.8 mg/dL (8.5-10.1); Creatinine, Blood 1.41 mg/dL (0.40-1.00); Globulin, Blood 3.8 g/dL (2.2-4.0); Potassium, Blood 3.7 mmol/L (3.5-5.5); Total Protein, Blood 6.7 g/dL (6.4-8.2); Troponin I 0.021 ng/mL (0.000-0.040)
[2019-08-27 08:18] LABS: Source, Urine Catheter
[2019-08-27 08:24] LABS: Bilirubin, Urine Neg (Neg); Glucose Qualitative, Urine 2+ (Neg); Protein, Urine 4+ (Neg); Urobilinogen, Urine NORM (Normal)
[2019-08-27 08:25] LABS: Ketones, Urine Neg (Neg)
[2019-08-27 08:28] LABS: Blood, Urine 1+ (Neg); Leukocyte Esterase, Urine 1+ (Neg); Nitrite, Urine Pos (Neg)
[2019-08-27 08:39] LABS: Appearance, Urine Hazy (Clear); Color, Urine Yellow (P-Yellow)
[2019-08-27 08:41] LABS: Amorphous Mod (0-Heavy); Bacteria Mod /hpf; Red Blood Cells, Urine 0-2 /hpf (0-2); Squamous Epithelial Cells Rare /hpf (Few)
--- NOTE | 2019-08-27 12:08 | NUR ---
ARRIVAL TO ICU 1100 - PT ARRIVES TO ICU FROM ED AT THIS TIME. BP ELEVATED 190S/110S. ADMINISTERED HYDRALAZINE AND NITRO PASTE AT ARRIVAL TO ROOM; WILL MONTIOR BP. C/O MILD DIFFUSE ABDOMINAL TENDERNESS; DENIES NAUSEA. NSR, HR 90S. AFEBRILE. PT ALERT AND ORIENTED ONLY TO SELF. CONFUSED AND CANNOT ANSWER QUESTIONS APPRROPRIATELY. LAUGHS AND STARES AT TIMES INSTEAD OF VERBALIZING ANSWERS. CHISHOLM CATH SECURED AND PATENT; DRAINING CLEAR, YELLOW URINE. NO SIGNS OF RESPIRATORY DISTRESS. SPO2 95% ON 2L NC. LUNG SOUNDS CLEAR IN UPPER [place] AND COARSE AND DIMINISHED IN BASES; BILL ON LEFT SIDE. CALL LIGHT WITHIN REACH. ANTIBIOTICS INFUSING. WILL CONTINUE TO MONITOR.
--- NOTE | 2019-08-27 13:14 | NUR ---
AT BEDSIDE AT BEDSIDE TALKING WITH PT. DOES NOT HAVE PTS MEDICATION LIST OR ALLERGY LIST AT THIS TIME. ASKED HIM TO BRING IN MEDS OR LIST NEXT TIME HE VISITS. UPDATED ON PT STATUS. STATES PT HAS BEEN CONFUSED FOR 3-4 WEEKS AND NEEDS MODERATE HELP AT HOME; HELP EVEN AMBULATING DUE TO L SIDED WEAKNESS FROM PRIOR STROKE. WILL INQUIRE ABOUT ANALYZER SALES CONSULT.
--- NOTE | 2019-08-27 14:38 | NUR ---
Echocardiogram completed.
--- NOTE | 2019-08-27 18:01 | NUR ---
SHIFT SUMMARY PT ARRIVED FROM ED AT 1100. HAS BEEN CONFUSED ENTIRE SHIFT. SPOKE WITH AT BEDSIDE TODAY WHO STATED PT HAS BEEN CONFUSED FOR 3-4 WEEKS. CHISHOLM CATH SECURED, PATENT, AND DRAINING WELL. HAD DIFFICULTY GETTING BP DOWN THIS AFTERNOON; PT GIVEN NORVASC AND PRN DOSE OF LABETOLOL. MD AND ADMITTING ROUND CORNER CUTTER OPERATOR AWARE OF TRENDS. BEDSIDE ECHO COMPELTED THIS AFTERNOON. PT CURRENTLY SITTING UP IN CHAIR. WILL GIVE BEDSIDE, HANDOFF REPORT TO DALTON RN.
--- NOTE | 2019-08-27 21:03 | NUR ---
ASSUME CARE; REPORT RECIEVED FROM LIZA OFF GOING RN. MONITOR INTACT SHOWING SINUS RHYTHM. HEART RATE 80'S. LUNG SOUNDS CLEAR UPPER LOBES WITH DECREASED COARSE SOUNDS IN THE BASES. RESPIRATIONS REGULAR AND EASY WITH O2 IN PLACE AT 2L/MIN SPO2 93-96%. ABDOMEN SOFT WITH BOWEL SOUNDS FOUR QUADS. CHISHOLM PATENT DRAINING RENITA URINE. PEDAL PULSES PRESENT NO EDEMA NOTED. STATES IS FEELING WARM BLANKETS REMOVED DENIES DISCOMFORT. CONTINUE TO MONITOR AND REPORT CHANGE IN PATINET CONDITION
[2019-08-28 03:25] LABS: BASOPHILS ABSOLUTE AUTO 0.09 K/mm3 (0.00-0.23); BASOPHILS PERCENT AUTO 1 % (0-2); EOSINOPHILS ABSOLUTE AUTO 0.57 K/mm3 (0.00-0.68); EOSINOPHILS PERCENT AUTO 6 % (0-6); Hematocrit 33.9 % (33.0-51.0); Hemoglobin 10.7 g/dL (11.5-16.0); IMMATURE GRAN ABSOLUTE AUTO 0.03 K/mm3 (0.00-0.10); IMMATURE GRAN PERCENT AUTO 0 % (0-1); LYMPHOCYTES ABSOLUTE AUTO 1.53 K/mm3 (0.84-5.20); LYMPHOCYTES PERCENT AUTO 16 % (21-46); MONOCYTES ABSOLUTE AUTO 1.03 K/mm3 (0.16-1.47); MONOCYTES PERCENT AUTO 11 % (4-13); Mean Corpuscular HGB 27.2 pg (26.0-34.0); Mean Corpuscular HGB Conc 31.6 g/dL (31.5-36.5); Mean Corpuscular Volume 86 fL (80-100); Mean Platelet Volume 9.1 fL (9.1-12.4); NEUTROPHILS ABSOLUTE AUTO 6.54 K/mm3 (1.96-9.15); NEUTROPHILS PERCENT AUTO 67 % (41-73); Platelet Count 319 K/mm3 (150-400); RDW Coefficient Variation 13.7 % (11.7-14.2); RDW Standard Deviation 43.3 fL (35.1-46.3); Red Blood Cell Count 3.94 M/mm3 (3.80-5.20); White Blood Cell Count 9.79 K/mm3 (4.00-11.30)
[2019-08-28 03:41] LABS: Albumin, Blood 2.5 g/dL (3.4-5.0); Albumin/Globulin Ratio 0.7 (0.8-1.8); Bilirubin, Total 0.5 mg/dL (0.1-1.0); Bun/Creatinine Ratio 10.2 (12.0-20.0); Calcium, Blood 8.8 mg/dL (8.5-10.1); Creatinine, Blood 1.37 mg/dL (0.40-1.00); Globulin, Blood 3.5 g/dL (2.2-4.0); Potassium, Blood 3.5 mmol/L (3.5-5.5)
--- NOTE | 2019-08-28 06:40 | NUR ---
SHIFT SUMMARY RESTS QUIETLY WHEN UNDISTURBED. MONITOR INTACT SHOWING SINUS RHYTHM HEART RATE 80'S-90'S. DENIES DISCOMFORT. REMAINS CONFUSED TO DATE TIME HOWEVER COOPERATIVE TO CARES. LUNG SOUNDS CLEAR UPPER LOBES WITH DECREASED SOUNDS IN THE BASES. OCC DESATURATES DURING SLEEP TO 87-88%. ABDOMEN SOFT WITH BOWEL SOUNDS FOUR QUADS. CIHSHOLM PATENT DRAINING RENITA URINE . CONTINUE TO MONITOR AND REPORT CHANGE IN PATIENT CONDITION.
--- NOTE | 2019-08-28 07:20 | NUR ---
START OF SHIFT NOTE: RECEIVED REPORT FROM DESHAWN MUÑOZ, ASSUMED CARE, PATIENT IS AWAKE AND TRYING TO CLIMB OOB, REMOVED PIV FROM LEFT WRIST THAT HAD JUST BEEN PLACED, BLEEDING, CLEANED AND COVERED WITH GAUZE AND COBAN, PATIENT IS CONFUSED, ALSO HAS DEMENTIA, EXTREMELY FORGETFUL, ON 2L NC, LUNG SOUNDS ARE CLEAR THROUGHOUT, NSR, ELEVATED SBP IN 180'S TO 190'S, BOWEL TONES HYPOACTIVE, CHISHOLM CATHETER IN PLACE, PEDAL PULSES FAINT, PATIENT DENIES PAIN AND IS AFEBRILE, WILL RESTART PIV ACCESS AND GIVE HYDRALAZINE FOR ELEBATED SBP'S, CALL LIGHT IN REACH, WILL CONTINUE TO MONITOR.
--- NOTE | 2019-08-28 08:41 | NUR ---
PIV ON LEFT FOREARM RESTARTED, PATIENT TOLERATED WELL, TOOK HER AM MEDICATIONS WELL WITH WATER, NO PROBLEM SWALLOWING, EATING BREAKFAST WITH GOOD APPETITE, CALL LIGHT IN REACH, WILL CONTINUE TO MONITOR.
--- NOTE | 2019-08-28 09:49 | NUR ---
PT/OT IN TO WORK WITH PATIENT, PATIENT IS FOLLOWING INSTRUCTIONS AND IS A ONE PERSON ASSIST, UP TO CHAIR AT THIS TIME, AT BEDSIDE, ALSO RODOLFO CAMARENA, DISCHARGE PLANNING, IN TO SPEAK WITH ABOUT HOME CARE HELP, CALL LIGHT IN REACH, WILL CONTINUE TO MONITOR.
--- NOTE | 2019-08-28 12:22 | NUR ---
Spiritual Care inital note: Mrs. Brooks was sleeping, but awakens easily to voice. she tells me she is not worried, and feels that she is already getting better. Her killian in a loving God brings her a sense of security and peace. Her is a strong support. No concerns presented. Provided prayer for healing and peace at ehr request. I will remain available.
--- NOTE | 2019-08-28 13:36 | NUR ---
REPORT CALLED TO HERBERT STRICKLAND RN, PATIENT TRANSFERRED TO ROOM 337 VIA WHEELCHAIR.
--- NOTE | 2019-08-28 14:43 | NUR ---
ASSUMED CARE REPORT REC FROM MAGGIE, BUFFING WHEEL FORMER AUTOMATIC @ 5012, PT ARRIVED @ 337 @ 0457, BEDRESTING, DENIES PAIN, NO NEEDS AT THIS TIME
--- NOTE | 2019-08-28 17:09 | NUR ---
SHIFT SUMMARY PT WAS ICU XFER THIS SHIFT, ASSUMED CARE OF PT @ 1340, PT HAS HAD NO ACUTE CHANGES OR COMPLAINTS OF ANY KIND, PT BEDRESTING, WILL CONT TO MONITOR UNTIL REPORT GIVEN TO DALTON RN.
[2019-08-29 04:55] LABS: BASOPHILS PERCENT AUTO 1 % (0-2); EOSINOPHILS ABSOLUTE AUTO 0.91 K/mm3 (0.00-0.68); EOSINOPHILS PERCENT AUTO 9 % (0-6); Hematocrit 33.3 % (33.0-51.0); Hemoglobin 10.5 g/dL (11.5-16.0); IMMATURE GRAN ABSOLUTE AUTO 0.03 K/mm3 (0.00-0.10); IMMATURE GRAN PERCENT AUTO 0 % (0-1); LYMPHOCYTES ABSOLUTE AUTO 1.43 K/mm3 (0.84-5.20); LYMPHOCYTES PERCENT AUTO 14 % (21-46); MONOCYTES ABSOLUTE AUTO 1.03 K/mm3 (0.16-1.47); MONOCYTES PERCENT AUTO 10 % (4-13); Mean Corpuscular HGB Conc 31.5 g/dL (31.5-36.5); Mean Corpuscular Volume 89 fL (80-100); NEUTROPHILS ABSOLUTE AUTO 6.43 K/mm3 (1.96-9.15); NEUTROPHILS PERCENT AUTO 65 % (41-73); Platelet Count 297 K/mm3 (150-400); RDW Coefficient Variation 13.7 % (11.7-14.2); RDW Standard Deviation 44.5 fL (35.1-46.3); Red Blood Cell Count 3.75 M/mm3 (3.80-5.20); White Blood Cell Count 9.93 K/mm3 (4.00-11.30)
--- NOTE | 2019-08-29 04:59 | NUR ---
Cheerful attitude at HS. Sleeping through most of shift with occasional calling out as if responding to dreams, as nurse would enter room when calling out and would appear to be asleep. Call light in reach.
[2019-08-29 05:11] LABS: Albumin, Blood 2.5 g/dL (3.4-5.0); Anion Gap 5 mmol/L (6-16); Blood Urea Nitrogen 13 mg/dL (8-24); Bun/Creatinine Ratio 9.6 (12.0-20.0); CO2, Blood 31 mmol/L (21-32); Calcium, Blood 9.1 mg/dL (8.5-10.1); Chloride, Blood 105 mmol/L (98-108); Creatinine, Blood 1.35 mg/dL (0.40-1.00); Glomerular Filtration Rate 41 (60-); Glucose, Blood 213 mg/dL (70-99); Phosphorus, Blood 3.3 mg/dL (2.5-4.9); Potassium, Blood 3.8 mmol/L (3.5-5.5); Sodium, Blood 141 mmol/L (136-145)
[2019-08-29] MEDS ORDERED: TRAM50 PO (08:30)
[2019-08-29] MEDS ORDERED: OMEPRAZOLE20 MG PO (10:57)
[2019-08-29] MEDS ORDERED: CARV3.125 PO (12:26)
[2019-08-29] MEDS ORDERED: CLOP75 PO (12:31)
--- NOTE | 2019-08-29 13:12 | NUR ---
Pt. is doing much better , lying in bed resting offered prayers .
--- NOTE | 2019-08-29 18:38 | NUR ---
SHIFT SUMMARY PT AWAKE AND UP IN CHAIR THIS MORNING AND EVENING. NO ATTEMPTS TO GET OUT OF CHAIR. AT BEDSIDE ON AND OFF TODAY. HYPERTENSIVE BUT SCHEDULED MEDS HELPFUL. 2 PERSON ASSIST WITH TRANSFER. DENIES PAIN OR DISTRESS. TAKES OXYGEN TUBING OFF. FORGETFUL AND REDIRECTABLE. DID PULL IV OUT TONIGHT. SPOKE WITH MD-SEE NEW ORDERS.
--- NOTE | 2019-08-30 03:09 | NUR ---
TRANSFER PT TRANSFERED FROM [facility] TO SCU RM 345. REPORT TAKEN FROM SHON REDDING RN TO ASSUME CARE OF PT AT THIS TIME. PT BLADDER SCANNED UPON ARIVAL TO UNIT SHE SHE HAS NOT VOIDED SINCE HER CATHETER REMOVAL AT AROUND 1500. BLADDER SCAN SHOWED 318 MLS. PT SETTLED INTO BED, WITH BELONGININGS IN PLACE. SHE DENIES NEEDS AT THIS TIME. CELLOPHANE WORKER MADE AWARE OF BLADDER SCAN RESULTS.
--- NOTE | 2019-08-30 03:09 | NUR ---
PT TRANSFER PT BECOMING INCREASINGLY CONFUSED THROUGHOUT THE NIGHT. PT HAS A HX OF DEMENTIA AND REPORTS THAT THIS HAS NOT BEEN UNUSUAL FOR HER. MULTIPLE TIMES PT ATTEMPTED TO GET OUT OF BED. CALLED RAKEL THE FIRST TIME AND HE WAS ABLE TO CALM HER DOWN AND CONVINCE HER TO STAY IN BED. AFTER, PT SLEPT WELL FOR SEVERAL HOURS. WHEN BEING WOKEN FOR VITALS AND BLADDER SCAN PT QUICKLY SAT UP TO THE SIDE OF THE BED AND WAS DETERMINED THAT SHE WAS LEAVING THE HOSPITAL. SHOVING STAFF AWAY FROM HER AND YELLING, "HELP ME". TRANSFERED PT TO ROOM 344. REPORT GIVEN TO MARI HESS.
--- NOTE | 2019-08-30 03:13 | NUR ---
SHIFT SUMMARY PT PLEASANTLY CONFUSED AT START OF SHIFT. ONLY ALERT TO SELF AND KNEW SHE WAS IN [place]. PT THOUGHT THAT IT WAS THE YEAR 1989. AT FIRST THOUGHT THAT SHE WAS IN A ALF CALLED "[facility]". LATER IN THE SHIFT REPORTED THAT SHE WAS IN "[facility]". PER REPORT PT HAD CHISHOLM REMOVED AT 1545. EARLIER IN THE SHIFT PT REPORTED THAT SHE FELT LIKE SHE HAD TO VOID. [place] [facility] [place] UNABLE TO VO[place]. BLADDER SCAN READ 54 MLS. AT APPROX 0300 PT HAD STILL NOT VOIDED. BLADDER SCAN DONE AGAIN READING 318 MLS. PT REMAINED ON 2 L O2 NC THROUGHOUT THE NIGHT WITH O2 SATS RANGING FROM 91-96%. BLOOD PRESSURE IMPROVED BUT REMAINS HYPERTENSIVE WITH SYSTOLIC IN THE 150'S. DUE TO PT'S INCREASING CONFUSION, PT TRANSFERED TO ROOM 344. SEE PREVIOUS NOTE.
--- NOTE | 2019-08-30 05:59 | NUR ---
BLADDER SCAN PT BLADDER SCANNED FOR A THIRD TIME THIS SHIFT, PT SCANNED 3 HOURS APART SINCE BEING TRANSFERRED FORM 337 TO 344. PT BLADDER SCAN WENT FROM [address] BURK CALLED AND NOTIFED OF RESULTS AND THAT PT HAD A CHISHOLM CATHETER REMOVED YESTERDAY AT AROUND 1500. DR. BURK WANTS TO HOLD OFF ON CATHERAZATION FOR NOW AND DO A REPEAT BLADDER SCAN IN 3 HOURS.
[2019-08-30 08:53] LABS: Bun/Creatinine Ratio 12.8 (12.0-20.0); Calcium, Blood 9.3 mg/dL (8.5-10.1); Creatinine, Blood 1.33 mg/dL (0.40-1.00); Potassium, Blood 3.8 mmol/L (3.5-5.5)
[2019-08-30] MEDS ORDERED: METO50ER PO (11:51)
--- NOTE | 2019-08-30 15:59 | NUR ---
DISCHARGED TO HOME WITH PORTABLE O2, INSTRUCTIONS AND BELONGINGS AT 1455. SHE VOIDED WELL ENOUGH TODAY, BUT DID NOT EMPTY ALL THE WAY. RESIDUAL < A CUP. SHE IS PLEASANTLY CONFUSED. SHE NEEDS SOMEONE TO HOLD ONTO HER WHEN SHE AMBULATES BECAUSE HER BALANCE IS POOR. HER RA BIOX THIS AFTERNOON WAS 86%. SHE NEEDS 2L BY NC CONTINUOUSLY. SHE DENIES SOB AND APPEARS COMFORTABLE.
== END 2019-08-30 15:00 | disposition home health service (06) | DRG 291 ==
LOC: ER 06:49 → PCU 10:57 → ICUE 11:04 → MEDS 08-28 13:40
PROVIDERS: Emergency Medicine; Internal Medicine; Nurse Practitioner Acute Care; ADMIT Hospitalist
DX: I13.0 Hypertensive heart and chronic kidney disease with heart failure and stage 1 through stage 4 chronic kidney disease, or unspecified chronic kidney disease (principal); I50.33 Acute on chronic diastolic (congestive) heart failure; R65.10 Systemic inflammatory response syndrome (SIRS) of non-infectious origin without acute organ dysfunction; N18.3 Chronic kidney disease, stage 3 (moderate); I16.0 Hypertensive urgency; F03.90 Unspecified dementia, unspecified severity, without behavioral disturbance, psychotic disturbance, mood disturbance, and anxiety; E11.22 Type 2 diabetes mellitus with diabetic chronic kidney disease; Z79.4 Long term (current) use of insulin; Z86.73 Personal history of transient ischemic attack (TIA), and cerebral infarction without residual deficits; E66.01 Morbid (severe) obesity due to excess calories; Z68.34 Body mass index [BMI] 34.0-34.9, adult
CPT/HCPCS: 36415; 51702; 71046; 80048; 80053; 80069; 81001; 82947; 83036; 83605; 83880; 84145; 84484; 85025; 87040; 87086; 93005; 93010; 93306; 94761; 96374-59; 97110; 97116; 97162; 97166; 97530; 97535; 99285-25; J0360; J1940; J1956

== ENCOUNTER 2019-12-26 12:37 | Inpatient (IN) | payer MEDICARE, OTHER ==
[~2019-12-26] VITALS: Ht 160 cm; Wt 79.2 kg
[~2019-12-26 12:37] MED LIST changes: +Aspir 8181 MG PO; +CARV3.125 PO; -HUMALOG KW200 UNIT/1 SC; +Humalog100 UNIT/3 SC; +LEVEMIR FL100 UNIT/1 SC; +OMEPRAZOLE20 MG PO
[2019-12-26 15:19] LABS: BASOPHILS ABSOLUTE AUTO 0.06 K/mm3 (0.00-0.23); BASOPHILS PERCENT AUTO 0 % (0-2); EOSINOPHILS ABSOLUTE AUTO 0.08 K/mm3 (0.00-0.68); EOSINOPHILS PERCENT AUTO 1 % (0-6); Hematocrit 28.1 % (33.0-51.0); Hemoglobin 8.9 g/dL (11.5-16.0); IMMATURE GRAN ABSOLUTE AUTO 0.11 K/mm3 (0.00-0.10); IMMATURE GRAN PERCENT AUTO 1 % (0-1); LYMPHOCYTES ABSOLUTE AUTO 1.03 K/mm3 (0.84-5.20); LYMPHOCYTES PERCENT AUTO 6 % (21-46); MONOCYTES ABSOLUTE AUTO 1.16 K/mm3 (0.16-1.47); MONOCYTES PERCENT AUTO 7 % (4-13); Mean Corpuscular HGB Conc 31.7 g/dL (31.5-36.5); Mean Corpuscular Volume 82 fL (80-100); Mean Platelet Volume 9.5 fL (9.1-12.4); NEUTROPHILS ABSOLUTE AUTO 13.82 K/mm3 (1.96-9.15); NEUTROPHILS PERCENT AUTO 85 % (41-73); Platelet Count 318 K/mm3 (150-400); RDW Coefficient Variation 13.9 % (11.7-14.2); RDW Standard Deviation 41.4 fL (35.1-46.3); Red Blood Cell Count 3.42 M/mm3 (3.80-5.20); White Blood Cell Count 16.26 K/mm3 (4.00-11.30)
[2019-12-26 15:52] LABS: Albumin, Blood 2.4 g/dL (3.4-5.0); Bun/Creatinine Ratio 18.9 (12.0-20.0); Calcium, Blood 9.1 mg/dL (8.5-10.1); Creatinine, Blood 1.48 mg/dL (0.40-1.00); Potassium, Blood 3.9 mmol/L (3.5-5.5)
[2019-12-26 15:58] LABS: Albumin/Globulin Ratio 0.6 (0.8-1.8); Bilirubin, Total 0.4 mg/dL (0.1-1.0); Globulin, Blood 3.9 g/dL (2.2-4.0); Total Protein, Blood 6.3 g/dL (6.4-8.2)
[2019-12-26 16:05] LABS: Troponin I 24.5 ng/mL (0.000-0.040)
[2019-12-26] MEDS ORDERED: LEVEMIR FL100 UNIT/1 SC (16:17)
[2019-12-26] MEDS ORDERED: CARV3.125 PO (16:23)
[2019-12-26] MEDS ORDERED: METO50ER PO (16:58)
[2019-12-26] MEDS ORDERED: LINZESS72 MCG PO (17:00)
[2019-12-26 18:02] LABS: International Normalized Ratio 1.13
--- NOTE | 2019-12-26 18:45 | NUR ---
PT ARRIVAL... PT ARRIVED ON UNIT VIA GURNEY, PT WAS SLID OVER TO THE BED WITH 4 NURSES AND SLIDER SHEET. PT IS ON 2L NC BUT SATS DROPPED DURING MOVMENT AND NEEDED INCREASED TO 2.5L NC. PT IS CURRENTLY SATTING AT 92% ON 2.5. HEPARIN GTT VERIFIED WITH MIGUELITO RN. CALL LIGHT IN REACH WILL CONTINUE TO MONTIOR UNTIL REPORT IS GIVEN TO ONCOMING RN.
[2019-12-27 01:18] LABS: BASOPHILS ABSOLUTE AUTO 0.06 K/mm3 (0.00-0.23); BASOPHILS PERCENT AUTO 0 % (0-2); EOSINOPHILS ABSOLUTE AUTO 0.27 K/mm3 (0.00-0.68); EOSINOPHILS PERCENT AUTO 2 % (0-6); Hematocrit 25.2 % (33.0-51.0); Hemoglobin 8.1 g/dL (11.5-16.0); IMMATURE GRAN ABSOLUTE AUTO 0.08 K/mm3 (0.00-0.10); IMMATURE GRAN PERCENT AUTO 1 % (0-1); LYMPHOCYTES PERCENT AUTO 12 % (21-46); MONOCYTES ABSOLUTE AUTO 1.03 K/mm3 (0.16-1.47); MONOCYTES PERCENT AUTO 7 % (4-13); Mean Corpuscular HGB 26.2 pg (26.0-34.0); Mean Corpuscular HGB Conc 32.1 g/dL (31.5-36.5); Mean Corpuscular Volume 82 fL (80-100); Mean Platelet Volume 9.2 fL (9.1-12.4); NEUTROPHILS ABSOLUTE AUTO 10.89 K/mm3 (1.96-9.15); NEUTROPHILS PERCENT AUTO 78 % (41-73); Platelet Count 293 K/mm3 (150-400); RDW Standard Deviation 41.6 fL (35.1-46.3); Red Blood Cell Count 3.09 M/mm3 (3.80-5.20); White Blood Cell Count 13.93 K/mm3 (4.00-11.30)
[2019-12-27 01:43] LABS: Calcium, Blood 8.7 mg/dL (8.5-10.1); Creatinine, Blood 1.55 mg/dL (0.40-1.00); Potassium, Blood 3.3 mmol/L (3.5-5.5)
[2019-12-27 01:48] LABS: Adenovirus Not Detected (NOT DETECT); Coronavirus 229E Not Detected (NOT DETECT); Coronavirus HKU1 Not Detected (NOT DETECT); Coronavirus NL63 Not Detected (NOT DETECT); Coronavirus OC43 Not Detected (NOT DETECT)
[2019-12-27 01:49] LABS: Bordetella pertussis Not Detected (NOT DETECT); Chlamydophila pneumoniae Not Detected (NOT DETECT); Human Metapneumovirus Not Detected (NOT DETECT); Human Rhinovirus/Enterovirus Not Detected (NOT DETECT); Influenza A/2009-H1 Not Detected (NOT DETECT); Influenza A/H1 Not Detected (NOT DETECT); Influenza A/H3 Not Detected (NOT DETECT); Influenza B Not Detected (NOT DETECT); Mycoplasma pneumoniae Not Detected (NOT DETECT); Parainfluenza Virus 1 Not Detected (NOT DETECT); Parainfluenza Virus 2 Not Detected (NOT DETECT); Parainfluenza Virus 3 Not Detected (NOT DETECT); Parainfluenza Virus 4 Not Detected (NOT DETECT); Respiratory Syncytial Virus Not Detected (NOT DETECT)
--- NOTE | 2019-12-27 05:10 | NUR ---
SHIFT SUMMARY PT ALERT; HX OF DEMENTIA; AT BEDSIDE EARLY PART OF SHIFT AND ASSISTED W/ ADMIT QUESTION AND MED REC; STATED HE WAS [facility] AND NUMEROUS FAMILY HAD RECENTLY BEEN ILL; PT IMPULSIVE IN NIGHT; CONFUSED; SEVERAL TIMES THOUGHT HER DAD WOULD BE HOME FROM WORK SOON OR THAT HER SIBLINGS SHOULD BE IN THE ROOM W/ HER; VSS; DENIES CHEST PAIN; HEPARIN GTT INFUSING; NO EVENTS NOTED ON TELE; O2 SATS >93 ON 2L NC; LUNG SOUNDS CLEAR; HX OF CVA W/ LEFT SIDED WEAKNESS; PT INCONTINENT; CHISHOLM ORDER HOWEVER UNABLE TO GAIN COMPLIANCE AT THIS TIME; NPO AT MIDNIGHT IN PREPARATION FOR PROCEDURE; PROVIDER NOTIFIED OF FAMILY ILLNESS, USE OF LEVEMIR AT HOME; RESP PANEL ORDERED; NO ORDER FOR LONG ACTING INSULIN AT THIS TIME PT IS NPO; CALL LIGHT IN REACH; BED IN LOWEST POSITION; WILL CONTINUE TO MONITOR CLOSELY UNTIL HAND OFF TO DAY SHIFT RN.
[2019-12-27 09:32] LABS: Source, Urine Catheter
[2019-12-27 09:35] LABS: Bilirubin, Urine Neg (Neg); Blood, Urine Neg (Neg); Glucose Qualitative, Urine 1+ (Neg); Ketones, Urine Neg (Neg); Leukocyte Esterase, Urine Neg (Neg); Nitrite, Urine Neg (Neg); Protein, Urine 3+ (Neg); Specific Gravity, Urine 1.025 (1.003-1.022); Urobilinogen, Urine NORM (Normal)
[2019-12-27 09:48] LABS: Color, Urine Yellow (P-Yellow)
[2019-12-27 09:49] LABS: Appearance, Urine Clear (Clear)
[2019-12-27 09:50] LABS: Amorphous Mod (0-Heavy); Bacteria Rare /hpf; Red Blood Cells, Urine 0-2 /hpf (0-2); Squamous Epithelial Cells Rare /hpf (Few); White Blood Cells, Urine 0-2 /hpf (0-5)
--- NOTE | 2019-12-27 13:54 | NUR ---
Spiritual care visit conducted. Patient is sitting up in bed and finishing lunch. Patient shares about her medical issues (although she was a bit confused about what is happening), about her years growing up and her love for God that began in her mother and was passed down to her. [facility] and continues to hold to that belief system. Patient tells me she gets confused often and that scares her sometimes. I listen empathically and provide companionship, grief support and prayer. Patient responds well and displays evidence of reduced stress. I will continue to remain available to patient and family.
[2019-12-27 17:25] LABS: Percent Saturation 5.6 % (15.0-50.0)
--- NOTE | 2019-12-27 18:24 | NUR ---
SHIFT SUMMARY.... NO ACUTE NEGATIVE CHANGES NOTED THIS SHIFT. PT'S VS HAVE BEEN STABLE. PT IS S/P ANGIO WITH NO INTERVENTIONS. PT IS TO BE NPO AFTER MIDNIGHT FOR ANGIO TOMORROW. PT HAS DENIED CHEST PAIN/PRESSURE N/V OR SOB THIS SHIFT. PT IS ON 3L NC WITH O2 SATS AT 90-93%. CHISHOLM IS PATENT AND DRAINING DARK YELLOW URINE TO GRAVITY. PT'S HAS BEEN AT THE BEDSIDE OFF AND ON T/O SHIFT. CALL LIGHT IN REACH WILL CONTINUE TO MONTIOR UNTIL REPORT IS GIVEN TO ONCOMING RN.
--- NOTE | 2019-12-27 19:35 | NUR ---
ASSUMED CARE RECEIVED REPORT FROM DESHAWN REDDING. ASSUMED CARE OF PT. RESTING COMFORTABLY AT THIS TIME, NO S/S ACUTE DISTRESS NOTED, O2 SATS STABLE AT THIS TIME. DENIES ANY NEEDS. CALL LIGHT IN REACH, BED IN LOWEST POSITION WITH BED ALARM ACTIVATED. WILL CONTINUE TO MONITOR.
[2019-12-28 06:29] LABS: BASOPHILS ABSOLUTE AUTO 0.05 K/mm3 (0.00-0.23); BASOPHILS PERCENT AUTO 0 % (0-2); EOSINOPHILS PERCENT AUTO 5 % (0-6); Hematocrit 23.3 % (33.0-51.0); Hemoglobin 7.2 g/dL (11.5-16.0); IMMATURE GRAN ABSOLUTE AUTO 0.09 K/mm3 (0.00-0.10); IMMATURE GRAN PERCENT AUTO 1 % (0-1); LYMPHOCYTES ABSOLUTE AUTO 1.33 K/mm3 (0.84-5.20); LYMPHOCYTES PERCENT AUTO 11 % (21-46); MONOCYTES PERCENT AUTO 6 % (4-13); Mean Corpuscular HGB 25.6 pg (26.0-34.0); Mean Corpuscular HGB Conc 30.9 g/dL (31.5-36.5); Mean Corpuscular Volume 83 fL (80-100); Mean Platelet Volume 9.8 fL (9.1-12.4); NEUTROPHILS ABSOLUTE AUTO 9.08 K/mm3 (1.96-9.15); NEUTROPHILS PERCENT AUTO 77 % (41-73); Platelet Count 295 K/mm3 (150-400); RDW Coefficient Variation 14.2 % (11.7-14.2); RDW Standard Deviation 42.8 fL (35.1-46.3); Red Blood Cell Count 2.81 M/mm3 (3.80-5.20); White Blood Cell Count 11.85 K/mm3 (4.00-11.30)
[2019-12-28 06:50] LABS: Albumin, Blood 1.9 g/dL (3.4-5.0); Anion Gap 6 mmol/L (6-16); Blood Urea Nitrogen 37 mg/dL (8-24); Bun/Creatinine Ratio 20.2 (12.0-20.0); CO2, Blood 27 mmol/L (21-32); Calcium, Blood 8.5 mg/dL (8.5-10.1); Chloride, Blood 105 mmol/L (98-108); Creatinine, Blood 1.83 mg/dL (0.40-1.00); Glomerular Filtration Rate 29 (60-); Glucose, Blood 244 mg/dL (70-99); Phosphorus, Blood 3.5 mg/dL (2.5-4.9); Potassium, Blood 3.8 mmol/L (3.5-5.5); Sodium, Blood 138 mmol/L (136-145)
--- NOTE | 2019-12-28 07:35 | NUR ---
AM NOTE.... ASSUMED CARE OF PT APROX 0700. PT IS A&Ox2 PT HAS DEMENTIA AT BASELINE BUT IS ABLE TO FOLLOW DIRECTIONS AND IS VERY COOPERATIVE. PT HAS BEEN NPO SINCE MIDNIGHT FOR POSSIBLE ANGIO TODAY. PT'S VS STABLE AT THIS TIME PT DENIES CHEST PAIN/PRESSURE. HEPARIN GTT RUNNING PER ORDERS. L/S CLEAR T/O DIM IN THE BASES, PT IS ON 4.5L NC WITH O2 SATS >90%. BT PRESENT BUT HYPOACTIVE ABD SOFT BUT TENDER TO PALP. PT HAS NOT HAD A BM SINCE ADMIT. WILL CONTINUE TO MONITOR
--- NOTE | 2019-12-28 17:34 | NUR ---
SHIFT SUMMARY... PT HAD 1UNIT OF PRBC, AFTER TRANSFUSION PT'S WORK OF BREATHING INCREASED, PT C/O OF "PAINFUL CHEST PRESSURE." PROVIDER WAS CALLED AND ONE TIME DOSE OF LASIX WAS GIVEN. PT'S VS HAVE BEEN STABLE T/O SHIFT, PT HAS BEEN ON 4.5L NC WITH O2 SATS AT 90%-94%. PT IS TO BE ON CLEAR LIQUID DIET STARTING 12/28 AND EGD/POSSIBLE COLONOSCOPY ON 12/29. NO EVENTS NOTED ON TELE. PT'S AT THE BEDSIDE OFF AND ON T/O THE SHIFT. CALL LIGHT IN REACH WILL CONTINUE TO MONITOR UNTIL REPORT IS GIVEN TO ONCOMING RN.
--- NOTE | 2019-12-28 19:35 | NUR ---
ASSUMED CARE RECEIVED REPORT FROM DESHAWN REDDING. ASSUMED CARE OF PT. O2 INCREASED TO 5L/NC FOR O2 SATS <90%. 02 SATS CLIMBING TO 91-92 T/O ASSESSMENT. PT STATES SHE FEELS SOB, HOB ELEVATED, PT BOOSTED TO POSITION OF COMFORT. DENIES ANY OTHER NEEDS AT THIS TIME. CALL LIGHT AND POSSESSIONS IN REACH, BED IN LOWEST POSITION WITH BED ALARM ACTIVATED. WILL CONTINUE TO MONITOR.
--- NOTE | 2019-12-28 22:40 | NUR ---
UPDATE PT O2 SATS AT 88-90% ON 5L/NC. THIS RN AT BEDSIDE FREQUENTLY TITRATING O2 TO MAINTAIN SATS >92%. PT C/O INCREASED SOB AND DYSPNEA, CRACKLES NOTED T/O LEFT AND RIGHT BASES. SPOKE TO JOEL ADAMS REGARDING PT'S INCREASING O2 NEEDS, PRIOR ADMINISTRATION OF LASIX, BLOOD TRANSFUSION DURING THE DAY, AND CONSISTENTLY LOW URINE OUTPUT. ORDERS RECEIVED FOR BPAP/CPAP PROTOCOL.
--- NOTE | 2019-12-29 00:50 | NUR ---
PT O2 SATS CONTINUE TO REMAIN <92% ON HIGH-FLOW NC. RN AT BEDSIDE PLACING OXIMIZER ON PT AT 11L/MIN. O2 SATS CONTINUING TO FLUCTUATE. WILL UPDATE JOEL ADAMS ON PT CONDITION.
--- NOTE | 2019-12-29 01:05 | NUR ---
UPDATE: UPDATE ON PT CONDITION GIVEN TO JOEL ADAMS. IN TO SEE PT. DISCUSSED DECLINE IN CONDITION, DISEASE PROCESS, CODE STATUS, AND PALLIATIVE CARE. STAT CXR ORDERED.
--- NOTE | 2019-12-29 01:20 | NUR ---
PT SISTER CALLED FOR AN UPDATE. THIS RN OBTAINED VERBAL CONSENT FROM PT. UPDATED SISTER ON PT CONDITION, MANAGEMENT MEDICALLY, AND TX PLAN. QUESTIONS AND CONCERNS ADDRESSED.
[2019-12-29 04:38] LABS: BASOPHILS ABSOLUTE AUTO 0.07 K/mm3 (0.00-0.23); BASOPHILS PERCENT AUTO 1 % (0-2); EOSINOPHILS ABSOLUTE AUTO 0.54 K/mm3 (0.00-0.68); EOSINOPHILS PERCENT AUTO 4 % (0-6); Hematocrit 29.7 % (33.0-51.0); Hemoglobin 9.5 g/dL (11.5-16.0); IMMATURE GRAN ABSOLUTE AUTO 0.11 K/mm3 (0.00-0.10); IMMATURE GRAN PERCENT AUTO 1 % (0-1); LYMPHOCYTES ABSOLUTE AUTO 1.33 K/mm3 (0.84-5.20); LYMPHOCYTES PERCENT AUTO 10 % (21-46); MONOCYTES ABSOLUTE AUTO 0.78 K/mm3 (0.16-1.47); MONOCYTES PERCENT AUTO 6 % (4-13); Mean Corpuscular HGB 26.3 pg (26.0-34.0); Mean Corpuscular Volume 82 fL (80-100); Mean Platelet Volume 9.1 fL (9.1-12.4); NEUTROPHILS ABSOLUTE AUTO 10.57 K/mm3 (1.96-9.15); NEUTROPHILS PERCENT AUTO 79 % (41-73); Platelet Count 318 K/mm3 (150-400); RDW Coefficient Variation 13.7 % (11.7-14.2); RDW Standard Deviation 41.3 fL (35.1-46.3); Red Blood Cell Count 3.61 M/mm3 (3.80-5.20)
[2019-12-29 04:54] LABS: Albumin, Blood 2.1 g/dL (3.4-5.0); Anion Gap 7 mmol/L (6-16); Blood Urea Nitrogen 37 mg/dL (8-24); Bun/Creatinine Ratio 21.5 (12.0-20.0); CO2, Blood 28 mmol/L (21-32); Calcium, Blood 8.8 mg/dL (8.5-10.1); Chloride, Blood 102 mmol/L (98-108); Creatinine, Blood 1.72 mg/dL (0.40-1.00); Glomerular Filtration Rate 31 (60-); Glucose, Blood 183 mg/dL (70-99); Phosphorus, Blood 3.7 mg/dL (2.5-4.9); Potassium, Blood 3.8 mmol/L (3.5-5.5); Sodium, Blood 137 mmol/L (136-145)
--- NOTE | 2019-12-29 07:50 | NUR ---
CANCEL EGD CALLED DR MORGAN. CANCEL EGD R/T O2 DEMAND INCREASE. CONTINUE POT.
--- NOTE | 2019-12-29 10:45 | NUR ---
Initial Visit: Palliative Care Consult for AD/POLST and Goals of Care. Pt's medical history and comorbidities include: Dementia, Multiple CVAs, HTN, DM Type 2, Renal Cell Carcinoma Post Partial Nephrectomy, CKD Stage 3, Diastolic CHF, CAD, and NSTEMI. Pt resting in bed upon arrival with at bedside. Dr Smith present and is educating Boone on Pt's current condition and prognosis. Discussion regarding code status and life sustaining measures also occurs. Boone is educated on life sustaining measures including risk factors and implications. After Dr Smith leaves this RN remains behind for further discussions. Engaged in therapeutic discussion regarding goals of care. Offered therapeutic listening and answered questios. After lengthy discussion Boone makes decision to place Pt on comfort care and states this aligns with Pt's wishes. Educated on comfort care philosophy and hospice philosophy with V/U made by Boone. Discussed comfort medications and discontinuing maintenance medications. Boone reports plan to go to his mother's house and make phone calls to other family members. No other concerns reported at this time. Boone expresses appreciation of visit. Spoke with Bedside RN Kori and discussed case. Spoke with Dr Smith and discussed case. Placed orders for comfort care, comfort care order set, and discontinued maintenance medications per V/O from Dr Smith. Also discussed with Dr Smith regarding Pt's reaction to opiod medication which is hallucinations. Due to the possibility of Pt experiencing air hunger Roxanol will also be ordered. Palliative Care will remain available for symptom management and therapeutic visits.
--- NOTE | 2019-12-29 11:14 | NUR ---
TRANSFER TO ROOM 345 REPORT CALLED TO MEDICAL FLOOR. PT TO TRANSFER VIA BED. AWARE OF PT YAMILETH AND TO WHAT ROOM. CONTINUE POT.
--- NOTE | 2019-12-29 11:34 | NUR ---
PT WAS TRANSFERRED FROM PCU. PT WAS ORIENTED TO HER ROOM, NURSING STAFF AND CALL LIGHT. PT IS RESTING COMFORTABLY IN BED WATCHING TV WITH CALL LIGHT IN REACH.
[2019-12-29 14:56] LABS: Stool Occult Blood Guaiac 1 Pos (Neg)
--- NOTE | 2019-12-29 15:31 | NUR ---
SHIFT SUMMARY PT IS A/O TO HERSELF AND FAMILY. SHE DENIES ANY PAIN. AFTER HER LEFT THIS AFTERNOON SHE DID EXPERIENCE SOME ANXIETY, MEDS WERE GIVEN ORDERED AND EFFECTIVE. PT WAS ABLE TO EAT SOME OF HER LUNCH. PHAN IS PATENT. PT REMAINS ON COMFORT CARE. SHE IS ABLE TO MAKE HER NEEDS KNOWN AND VOICES HER NEEDS OR USES CALL LIGHT WHEN NEEDED. CALL LIGHT IS IN REACH.
--- NOTE | 2019-12-30 04:09 | NUR ---
SHIFT SUMMARY PT WAS RESTLESS AND ANXIOUS FOR THE FIRST HALF OF SHIFT. SHE WAS MOANING AND YELLING OUT DESPITE RECEIVING MEDICATION FOR PAIN AND IV ATIVAN FOR ANXIETY. PT AT TIMES ABLE TO ANSWER YES OR NO TO MY QUESTIONS AND GIVE A PAIN RATING WHEN ASKED. PT CAME TO VISIT A SHORT TIME AFTER MIDNIGHT, WHICH SEEMED TO COMFORT PT SOME, BUT SOME AGITATION AND ANXIETY REMAINED. PT WAS AGAIN MEDICATED FOR PAIN AND THEN HALDOL FOR AGITATION. PT HAS SINCE RESTED COMFORTABLY WITHOUT DISTRESS. PT IS WARM TO TOUCH AND AT TIMES DIAPHORETIC. A COOL WASH CLOTH AND FAN WAS PROVIDED FOR COMFORT. O2 IN PLACE AT 4L ALSO FOR COMFORT. CHISHOLM IN PLACE PATENT AND DRAINING. THERE HAVE BEEN NO ACUTE CHANGES. COMFORT ASSESSED T/O SHIFT. BED IN LOWEST POSITION, CALL LIGHT WITHIN REACH. WILL CONTINUE TO MONITOR AND REPORT TO ONCOMING RN.
--- NOTE | 2019-12-30 15:39 | NUR ---
SHIFT SUMMARY PT CONTINUES ON COMFORT CARE. SHE HAS BEEN RESTING THROUGHOUT THE DAY AND MOANS OUT LOUD. MEDS HAVE BEEN GIVEN ORDERED REFLECTED ON THE MAR. HAS BEEN IN A FEW TIMES BUT DID NOT STAY LONG. PALLIATIVE CARE HAS BEEN VISITING WITH THE PT. DOCTOR JULIANA NON COMFORT MEDS THIS MORNING. [employer] OFFICE INSTRUCTOR ASSISTED PT WITH A BED BATH THIS MORNING. PT IS RESTING IN BED WITH PILLOWS FOR COMFORT AND MUSIC CHANNEL ON THE TV.
--- NOTE | 2019-12-30 18:39 | NUR ---
Initial spiritual care note: Mrs. Brooks was alone in room and moaning. She was diaphoretic and somewhat restless. She did not respond to me at all. Per RN, all prescribed medications have been administered, but pt continues to show signs of distress. I have left message with palliative care RN to review meds. Prayer provided at bedside. I will remain available to pt and family.
--- NOTE | 2019-12-30 20:15 | NUR ---
12/30/192009 RAKEL OMER, HERE AND UPDATED ON STATUS. HE IS AWARE OF COMFORT CARE AND AGREES WITH DNR STATUS. SEE MAR FOR MEDS GIVEN
--- NOTE | 2019-12-30 23:25 | NUR ---
12/30/19 2245 RN MAKING ROUNDS AND FOUND PT WITH ABSENCE OF BREATHING. PUPILS DILATED AND NONRESPONSIVE. RN INFORMED BAKERY PASTRY INTERNSHIPJAY. BAKERY PASTRY INTERNSHIP NOTIFIED WEBBING INSPECTOR BRYAN MENEZES AT 2250. RN NOTIFIED , RAKEL, AT 2300. GAVE [facility] HOME TO STONE GRADER THE BODY. WAS NOT PLANNING TO COME TO HOSPITAL AND WILL SEE AT HOME IN AM. CHISHOLM, OXYGEN AND IV DC'D AT 2300.
--- NOTE | 2019-12-31 00:34 | NUR ---
12/31/19 0030 [facility] PICKED UP BODY AND BELONGINGS. HIS NAME IS AXEL MELENDREZ.
== END 2019-12-30 22:45 ==
LOC: ER 12:37 → MEDS 16:53 → PCU 16:53 → MEDS 12-29 11:25
PROVIDERS: Emergency Medicine; Internal Medicine; ADMIT Internal Medicine
PROC: B211YZZ Fluoroscopy of Multiple Coronary Arteries using Other Contrast (ICD-10-PCS; principal; 2019-12-27)
DX: I21.4 Non-ST elevation (NSTEMI) myocardial infarction (principal); J96.01 Acute respiratory failure with hypoxia; I50.43 Acute on chronic combined systolic (congestive) and diastolic (congestive) heart failure; I69.954 Hemiplegia and hemiparesis following unspecified cerebrovascular disease affecting left non-dominant side; I13.0 Hypertensive heart and chronic kidney disease with heart failure and stage 1 through stage 4 chronic kidney disease, or unspecified chronic kidney disease; N18.3 Chronic kidney disease, stage 3 (moderate); Z66 Do not resuscitate; Z51.5 Encounter for palliative care; I48.0 Paroxysmal atrial fibrillation; F03.90 Unspecified dementia, unspecified severity, without behavioral disturbance, psychotic disturbance, mood disturbance, and anxiety; E11.22 Type 2 diabetes mellitus with diabetic chronic kidney disease; I25.10 Atherosclerotic heart disease of native coronary artery without angina pectoris; D50.9 Iron deficiency anemia, unspecified; D63.1 Anemia in chronic kidney disease; I25.5 Ischemic cardiomyopathy; I34.0 Nonrheumatic mitral (valve) insufficiency; E11.40 Type 2 diabetes mellitus with diabetic neuropathy, unspecified; E11.43 Type 2 diabetes mellitus with diabetic autonomic (poly)neuropathy; K31.84 Gastroparesis; E66.01 Morbid (severe) obesity due to excess calories; E78.5 Hyperlipidemia, unspecified; K21.9 Gastro-esophageal reflux disease without esophagitis; F32.9 Major depressive disorder, single episode, unspecified; Z68.30 Body mass index [BMI] 30.0-30.9, adult; Z88.0 Allergy status to penicillin; Z88.2 Allergy status to sulfonamides; Z88.8 Allergy status to other drugs, medicaments and biological substances; Z79.01 Long term (current) use of anticoagulants; Z79.02 Long term (current) use of antithrombotics/antiplatelets; Z79.82 Long term (current) use of aspirin; Z79.4 Long term (current) use of insulin; Z79.899 Other long term (current) drug therapy; Z90.5 Acquired absence of kidney; Z85.528 Personal history of other malignant neoplasm of kidney
CPT/HCPCS: 0099U; 12011; 36415; 36430; 51702; 70450; 71045; 76937; 80048; 80053; 80069; 81001; 82272; 82607; 82728; 82746; 82947; 83540; 83550; 83880; 84484; 85025; 85610; 85730; 86850; 86900; 86901; 86923; 90686; 93005; 93010; 93454; 94762; 96365-59; 96375-59; 99152; 99285-25; A9270-GY; C1769; C1894; C8929; C9113; G0008; J1630; J1644; J1940; J2060; J2250; J2405; J3010; J7030; J7040; J7050; P9016; Q9957; Q9967